=== PATIENT | female | born 1990 | race Caucasian/White ===

== ENCOUNTER 2019-03-02 09:27 | Emergency (ER) | payer OTHER ==
[~2019-03-02] VITALS: Ht 157.5 cm; Wt 59.9 kg
[2019-03-02 09:54] LABS: Source, Urine Clean Catch
[2019-03-02 09:58] LABS: Bilirubin, Urine Neg (Neg); Blood, Urine 1+ (Neg); Glucose Qualitative, Urine Neg (Neg); Ketones, Urine Neg (Neg); Leukocyte Esterase, Urine Neg (Neg); Nitrite, Urine Neg (Neg); Protein, Urine Neg (Neg); Specific Gravity, Urine 1.005 (1.003-1.022); Urobilinogen, Urine NORM (Normal); pH, Urine 6.5 (5.0-8.0)
[2019-03-02] MEDS ORDERED: METR500 PO (10:13)
[2019-03-02 10:15] LABS: Appearance, Urine Clear (Clear); Color, Urine Yellow (P-Yellow); Red Blood Cells, Urine 0-2 /hpf (0-2); Squamous Epithelial Cells Few /hpf (Few); White Blood Cells, Urine 0-2 /hpf (0-5)
[2019-03-02 10:17] LABS: Bacteria Few /hpf
[2019-03-03 16:06] LABS: CHLAMYDIA TRACHOMATIS, NAA Negative (Negative); NEISSERIA GONORRHOEAE, NAA Negative (Negative)
== END 2019-03-02 11:15 | disposition home or self-care (01) ==
LOC: ER 09:27
PROVIDERS: Physician Assistant
DX: N89.8 Other specified noninflammatory disorders of vagina (principal); G43.909 Migraine, unspecified, not intractable, without status migrainosus; Z79.899 Other long term (current) drug therapy
CPT/HCPCS: 81001; 81025; 87491; 87529; 87591; 99283